=== PATIENT | male | born 1965 | race Caucasian/White ===

== ENCOUNTER 2021-02-25 22:59 | Emergency (ER) | payer MEDICAID ==
[2021-02-25] MEDS ORDERED: Amoxicillin/Clavulanate K 875-125 MG Tab PO ONE (23:21)
--- NOTE | 2021-02-25 23:21 | EDM.PDOC ---
ED HPI GENERAL MEDICAL PROBLEM - General Chief Complaint: Bite:Animal, Insect Stated Complaint: DOG BITE Time Seen by Provider: 02/25/21 23:15 Source of Information: Reports: Patient History Limitations: Reports: No Limitations - History of Present Illness INITIAL COMMENTS - FREE TEXT/NARRATIVE: Osbaldo Morgan presents ambulatory through triage with complaints of dog bites. Patient is right-handed and notes that he was helping break up a fight between 2 dogs. Patient notes he was bit in his right index finger and right eyebrow. He denies any other acute complaints. He is tetanus was last updated on March 2015. He denies diabetes. He denies any runny nose, sore throat, cough change in his or smell. The patient reports previous fractures to his right index finger from boxing many years ago. He denies any new loss of function but does note pain over the distal right index finger where he was bit. Patient has any numbness, tingling. He denies any complaints. He does report that the dog has had his vaccines. Right Finger-Index Pain Score (Numeric/FACES): 8 - Related Data Allergies Allergy/AdvReac Type Severity Reaction Status Date / Time morphine Allergy Itching Verified 02/25/21 23:25 Home Meds: Home Meds NK [No Known Home Meds] 02/25/21 [History] ED ROS GENERAL - Review of Systems Review Of Systems: See Below Constitutional: Denies: Fever, Chills HEENT: Reports: No Symptoms Respiratory: Reports: No Symptoms Cardiovascular: Reports: No Symptoms Musculoskeletal: Reports: Other (Previous fractures to right index finger. New pain of right distal index finger phalanx where he was bit.) Skin: Reports: Other (Laceration right medial eyebrow and right index finger.) Neurological: Reports: No Symptoms. Denies: Paresthesia Hematologic/Lymphatic: Reports: No Symptoms. Denies: Easy Bleeding, Easy Bruising Immunologic: Reports: No Symptoms ED EXAM, ANIMAL BITE - Physical Exam Exam: See Below Exam Limited By: No Limitations General Appearance: Alert, No Apparent Distress Eye Exam: Bilateral Eye: PERRL Ears: Normal External Exam Nose: Normal Inspection Throat/Mouth: Normal Inspection Head: No: Facial Swelling, Facial Tenderness, Sinus Tenderness Neck: Normal Inspection Respiratory/Chest: No Respiratory Distress, Lungs Clear Cardiovascular: Normal Peripheral Pulses, No JVD, Other (Cap refill is normal.) GI/Abdominal: Non-Tender Back Exam: Normal Inspection Extremities: Normal Capillary Refill, Other (Patient has a laceration to the right index finger distal phalanx does not involve the nailbed or nail plate. Over the radial aspect. Cap refill distally is intact. There is appearance of chronic deformity of PIP joint. Patient does have flexion at the PIP and DIP without pain or discomfort. No) Neurological: Alert, Oriented, Normal Cognition, Normal Gait, No Motor/Sensory Deficits, Other Skin Exam: Normal Color, Other (Single isolated puncture rajeev to right medial eyebrow. Approximately 0.5 center laceration to right index finger distal phalanx. Remaining skin is normal.) ED ANIMAL BITE PROCEDURES - Laceration/Wound Repair Right Digit - 2nd (Index) Lac/Wound Length In cm: 0.5 Appearance: Superficial Distal NVT: Neuro & Vascular Intact Anesthetic Type: Digital Local Anesthesia - Lidocaine (Xylocaine): 1% Plain Local Anesthetic Volume: 2cc Skin Prep: Chlorhexidine (Hibiciens) Saline Irrigation (cc's): 1,000 (tap water) Exploration/Debridement/Repair: Wound Explored Course - Vital Signs Text/Narrative:: After digital block patient was taken to the high flow sink and irrigated the right ring finger for greater than 5 minutes. The medial right eyebrow is also been irrigated and is very superficial no need for repair Right index finger x-ray. Soft tissue defect but no fracture. My read prelim. Patient medical stable. His wounds been irrigated. There is no indication for repair. His tetanus is up-to-date and we will place him on Augmentin as outpatient. First dose given in the ER. Augmentin 875 mg po bid x 7 days Last Recorded V/S: Last Vital Signs Temp 36.4 C 02/25/21 23:33 Pulse 79 02/25/21 23:33 Resp 16 02/25/21 23:33 BP 126/81 02/25/21 23:33 Pulse Ox 99 02/25/21 23:33 - Orders/Labs/Meds Orders: Active Orders 24 hr Category Date Time Status Fingers Second Digit Rt F6 [CR] Stat Exams 02/25/21 23:22 Taken Meds: Medications Discontinued Medications Generic Name Dose Route Start Last Admin Trade Name Freq PRN Reason Stop Dose Admin Amoxicillin/Clavulanate Potassium 1 tab 02/25/21 23:21 02/25/21 23:28 Amoxicillin/Clavulanate K 875-125 Mg Tab PO 02/25/21 23:22 1 tab ONETIME ONE Administration Bacitracin 1 dose 02/26/21 00:29 02/26/21 00:29 Bacitracin Oint 1 Gm U/D Packet TOP 02/26/21 00:30 1 dose ONETIME ONE Administration Bacitracin Confirm 02/26/21 00:26 02/26/21 00:30 Bacitracin Oint 1 Gm U/D Packet Administered 02/26/21 00:27 Not Given Dose 1 dose .ROUTE .STK-MED ONE Diphtheria/Tetanus/Acell Pertussis 0.5 ml 02/25/21 23:31 02/26/21 00:00 Diphtheria,Pertussis(Acell),Tetanus Vaccine 0.5 Ml Syringe IM 02/25/21 23:32 0.5 ml .ONCE ONE Administration Lidocaine HCl 5 ml 02/25/21 23:21 02/25/21 23:28 Lidocaine 1% 5 Ml Sdv INJECT 02/25/21 23:22 5 ml ONETIME ONE Administration Departure - Departure Time of Disposition: 00:10 Disposition: Home, Self-Care 01 Condition: Good Clinical Impression: Dog bite, Eyebrow laceration, Laceration of index finger - Discharge Information Instructions: Animal Bite, Adult, [id number], Laceration Care, Adult, [id number] Referrals: PCP,None [Primary Care Provider] - Forms: ED Department Discharge Additional Instructions: Take the Augmentin 1 tablet by mouth for the next 7 days until gone. Keep your finger clean dry and covered with bacitracin and a Band-Aid. Return if fever, temperature to 100.4, severe pain or red streaks of hand. Recheck prior care physician or here in 5 to 7 days. Your x-rays will be finally read tomorrow by radiologist. Your preliminary x-rays are negative for fracture or retained tooth. Sepsis Event Note (ED) - Focused Exam Vital Signs: Vital Signs Temp Pulse Resp BP Pulse Ox 02/25/21 23:33 36.4 C 79 16 126/81 99 02/25/21 23:13 36.4 C 79 16 126/81 99 - My Orders Last 24 Hours: My Active Orders 02/25/21 23:22 Fingers Second Digit Rt F6 [CR] Stat - Assessment/Plan Last 24 Hours: My Active Orders 02/25/21 23:22 Fingers Second Digit Rt F6 [CR] Stat
[2021-02-25] MEDS ORDERED: Diphtheria,Pertussis(Acell),Tetanus Vaccine 0.5 ML Syringe IM ONE (23:31)
[2021-02-26] MEDS ORDERED: Bacitracin Oint 1 GM U/D Packet ONE (00:26)
[2021-02-26] MEDS ORDERED: Bacitracin Oint 1 GM U/D Packet TOP ONE (00:29)
--- NOTE | 2021-02-26 09:13 | CR ---
Fingers Second Digit Rt F6 CLINICAL HISTORY: Dog bite FINDINGS: There is a laceration of the distal aspect of the right index finger. No underlying fractures identified. There are some minimal stable density which may be on the skin or in the soft tissue IMPRESSION: Laceration No fracture
== END 2021-02-26 00:42 | disposition home or self-care (01) ==
LOC: JP.ED 22:59
DX: S01.151A Open bite of right eyelid and periocular area, initial encounter (principal); S61.250A Open bite of right index finger without damage to nail, initial encounter; Z23 Encounter for immunization; Z88.6 Allergy status to analgesic agent; W54.0XXA Bitten by dog, initial encounter
CPT/HCPCS: 64450; 73140-26-F6; 73140-F6; 90471; 90715; 99283-25; A9270-GY

== ENCOUNTER 2021-03-29 17:23 | Inpatient (IN) | payer MEDICAID ==
--- NOTE | 2021-03-29 19:32 | CRLCT ---
For Patients: As a result of the Century Cures Act, medical imaging exams and procedure reports are released immediately into your electronic medical record. You may view this report before your referring provider. If you have questions, please contact your health care provider. INDICATION: Sudden pain all over the abdomen. Pain came on last night. TECHNIQUE: CT of abdomen and pelvis performed without oral or IV contrast. FINDINGS: Mild retrolisthesis of L5 on S1. Marked sclerosis in the L5 and S1 vertebral bodies about the narrowed L5 interspaces consistent with degenerative disc disease. Partial visualization of changes of previous granulomatous disease in the chest and spleen including multiple calcified lymph nodes and calcified granulomas in the right infrahilar region and calcified granulomas in the spleen. Mild to moderate aortic vascular calcifications. Mild wall prominence distal esophagus likely chronic. Hazy and ill-defined opacity in the lower lobes could be related to the atelectasis and/or inflammation. Few small uncalcified nodules in the mid and lower lungs are statistically speaking likely benign. Cholecystectomy with upper limits normal common bile duct consistent postcholecystectomy state. No renal or ureteral stones. Few scattered air-fluid levels within small bowel loops in the abdomen and pelvis with none the small bowel loops being dilated. Findings likely related to a small bowel ileus. Appendix is normal. Fluid in the right lower anterior pelvis with mild scarring in the right anterior pelvic wall and groin consistent with prior hernia repair. Mild wall prominence urinary bladder. Small amount of nodular density or fluid in the left lower abdomen and anterior lateral to the descending colon is very nonspecific. Remainder negative. IMPRESSION: 1. Few air-fluid levels within nondilated small bowel loops in the abdomen and pelvis without a discrete transition point likely related to a early small bowel ileus. Findings are not prominent enough to suggest an early partial small bowel obstruction. 2. Postsurgical changes right lower anterior pelvis and groin region consistent with prior hernia repair with a small amount of loculated fluid in this region. 3. Small amount of density along the anterior lateral aspect of the distal descending colon very nonspecific. 4. Few uncalcified nodules in the mid and lower lungs are statistically speaking likely benign. 5. Cholecystectomy with mild prominence of the common bile duct consistent postcholecystectomy state. Other findings as above. Please note that all CT scans at this facility use dose modulation, iterative reconstruction, and/or weight-based dosing when appropriate to reduce radiation dose to as low as reasonably achievable. Dictated by Samuel Amezcua MD @ 03/29/2021 7:30:[address] Samuel Amezcua @ Mar 29 2021 7:30PM
--- NOTE | 2021-03-29 19:51 | EDM.PDOC ---
ED HPI GENERAL MEDICAL PROBLEM - General Chief Complaint: Abdominal Pain Stated Complaint: STOMACH PAIN/NUMBNESS Time Seen by Provider: 03/29/21 17:50 Source of Information: Reports: Patient, RN, RN Notes Reviewed History Limitations: Reports: No Limitations - History of Present Illness INITIAL COMMENTS - FREE TEXT/NARRATIVE: Patient with sudden onset right lower quadrant pain last evening. Patient is tender to touch. Is not take anything for pain. He has eaten and drank very little since the pain started. Onset: Sudden Onset Date: 03/28/21 Onset Time: 22:00 Duration: Getting Worse Location: Reports: Abdomen (Predominantly right lower quadrant moving toward spinal region. ) Quality: Reports: Sharp, Other Severity: Moderate Improves with: Reports: None Worsens with: Reports: None Context: Reports: Sick Contact Associated Symptoms: Reports: Other (Difficulty with bowel movements does have some gas) Treatments GATEMAN: Reports: Other (see below) - Related Data Allergies Allergy/AdvReac Type Severity Reaction Status Date / Time morphine Allergy Itching Verified 03/29/21 17:39 Home Meds: Home Meds NK [No Known Home Meds] 02/25/21 [History] Past Medical History Cardiovascular History: Reports: [place] Musculoskeletal History: Reports: Back Pain, Chronic - Past Surgical History GI Surgical History: Reports: Cholecystectomy, Other (See Below) Other GI Surgeries/Procedures: esophageal hernia Neurological Surgical History: Reports: Lumbar Spine Social & Family History - Tobacco Use Tobacco Use Status *Q: Current Every Day Tobacco User Years of Tobacco use: 30 Packs/Tins Daily: 1 - Caffeine Use Caffeine Use: Reports: None ED ROS GENERAL - Review of Systems Review Of Systems: See Below (None) Constitutional: Reports: Fever, Chills, Weakness, Decreased Appetite (Pseudogout 1) HEENT: Reports: No Symptoms Respiratory: Reports: No Symptoms Cardiovascular: Reports: No Symptoms Endocrine: Reports: Fatigue GI/Abdominal: Reports: Abdominal Pain, Constipation, Flatus (Small amounts), Nausea. Denies: Black Stool, Bloody Stool, Diarrhea, Mucous in Stool, Vomiting : Reports: No Symptoms Musculoskeletal: Reports: No Symptoms Skin: Reports: No Symptoms ED EXAM, GI/ABD - Physical Exam Exam: See Below Exam Limited By: No Limitations General Appearance: Alert, Moderate Distress Throat/Mouth: Normal Inspection, Normal Lips Head: Atraumatic, Normocephalic Neck: Normal Inspection, Supple, Non-Tender Respiratory/Chest: No Respiratory Distress, Lungs Clear, Normal Breath Sounds Cardiovascular: Normal Peripheral Pulses, Regular Rate, Rhythm, No Edema GI/Abdominal Exam: Guarding, Rebound, Tender, Abnormal Bowel Sounds. No: Distended, Mass, Hepatomegaly, Splenomegaly Back Exam: Normal Inspection, Full Range of Motion Extremities: Normal Inspection, Normal Range of Motion Neurological: Alert, Oriented, CN II-XII Intact, Normal Cognition Psychiatric: Normal Affect, Normal Mood Skin Exam: Warm, Dry, Intact, Normal Color, No Rash Lymphatic: No Adenopathy Course - Vital Signs Last Recorded V/S: Last Vital Signs Temp 36.6 C 03/29/21 17:46 Pulse 86 03/29/21 17:46 Resp 22 H 03/29/21 17:46 BP 118/73 03/29/21 17:46 Pulse Ox 96 03/29/21 17:46 - Orders/Labs/Meds Orders: Medication Orders Sodium Chloride (Sodium Chloride 0.9% 10 Ml Syringe) 10 ml FLUSH ASDIRECTED PRN PRN Reason: Keep Vein Open Last Admin: 03/29/21 20:41 Dose: 10 ml Documented by: KP Meds: Medications Generic Name Dose Route Start Last Admin Trade Name Freq PRN Reason Stop Dose Admin Sodium Chloride 10 ml 03/29/21 20:24 03/29/21 20:41 Sodium Chloride 0.9% 10 Ml Syringe FLUSH 10 ml ASDIRECTED PRN Administration Keep Vein Open Discontinued Medications Generic Name Dose Route Start Last Admin Trade Name Freq PRN Reason Stop Dose Admin Ketorolac Tromethamine 30 mg 03/29/21 20:26 03/29/21 20:40 Ketorolac 30 Mg/Ml Sdv IVPUSH 03/29/21 20:27 30 mg ONETIME ONE Administration - Radiology Interpretation Free Text/Narrative:: CT scan shows ileus versus small bowel obstruction will consult surgery. CT Results Date: 03/29/21 CT Results Time: 19:30 - Re-Assessments/Exams Free Text/Narrative Re-Assessment/Exam: IV be to placed with IV Toradol provided for pain patient does have a morphine allergy so opted for Toradol versus Dilaudid. 03/29/21 20:[address] Bell who is the on-call provider for the hospital. Patient will be admitted as an inpatient for ileus versus small bowel obstruction with consult to surgery. 03/29/21 20:53 Departure - Departure Time of Disposition: 21:15 Disposition: Admitted As Inpatient 68 Clinical Impression: Ileus, Abdominal pain - Discharge Information *PRESCRIPTION DRUG MONITORING PROGRAM REVIEWED*: Not Applicable *COPY OF PRESCRIPTION DRUG MONITORING REPORT IN PATIENT RASHEED: Not Applicable Sepsis Event Note (ED) - Evaluation Sepsis Screening Result: No Definite Risk - Assessment/Plan Assessment:: Ileus versus bowel obstruction Plan: Admit to inpatient with surgical consult
[2021-03-29] MEDS ORDERED: Sodium Chloride 0.9% 10 ML Syringe FLUSH PRN (20:24)
[2021-03-29] MEDS ORDERED: Ketorolac 30 MG/ML SDV IVPUSH ONE (20:26)
[2021-03-29] MEDS ORDERED: Ondansetron 4 MG/2 ML SDV IVPUSH PRN (21:30)
[2021-03-29] MEDS ORDERED: HYDROmorphone 0.5 MG/0.5 ML Syringe IVPUSH PRN (21:30)
[2021-03-29] MEDS ORDERED: Pantoprazole 40 MG Vial IVPUSH SCH (21:30)
[2021-03-29] MEDS ORDERED: Ketorolac 30 MG/ML SDV IVPUSH PRN (21:30)
[2021-03-29] MEDS: Sodium Chloride 0.9% 1,000 ML IV SCH (22:45)
--- NOTE | 2021-03-29 23:10 | HP ---
IDENTIFYING DATA: Osbaldo Morgan is a 56-year-old male from [place], [place]. CHIEF COMPLAINT: Abdominal pain. HISTORY OF PRESENT ILLNESS: The patient reports he is generally in a good state of health. However, yesterday evening following supper, he had onset of vague generalized anterior abdominal pain of iuaqilum-xi-tuutac intensity. The pain has persisted over the 24 hours. He has had periods of transient nausea without emesis as well as anorexia, taking in only small amounts of fluids. He is stooling and passing flatus with increasing pain. He presented to the emergency room. PAST MEDICAL HISTORY: Significant for history of chronic GE reflux with laparoscopic Benita fundoplication completed approximately 10 years ago. He reports occasional dyspeptic symptoms with p.r.n. use of H2 meek therapy. Additional surgeries include elective cholecystectomy and inguinal herniorrhaphy. He denies recent dyspeptic symptoms. He is a tobacco user of one pack per day. Caffeine use is heavy, estimating 2 to 3 coffees and a 12-pack of Mountain Dew daily. Rare use of alcohol, reporting a remote history of heavy alcohol use. Denies other drug use at the current time. He has had no emesis, hematemesis, melena, or hematochezia. He has had occasional aching across the flanks as well. PAST SURGICAL HISTORY: Previous surgeries as identified above. Additional surgeries include lumbar spine fusion for chronic low back pain. HABITS: Tobacco and caffeinated beverage use as noted above. IMMUNIZATIONS: Vaccine status is unknown. ALLERGIES: REPORTED TO MORPHINE WITH DEVELOPMENT OF ITCHING. MEDICATIONS: Currently on no medications routinely. Does use iuqy-ubq-uauziim H2 blockers on a p.r.n. basis and infrequent use of nonsteroidals. SOCIAL HISTORY: Presents to the hospital with his significant other. 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 FAMILY HISTORY: Denies familial history of other individuals with acute respiratory or GI infections. REVIEW OF SYSTEMS: NEUROLOGIC: Reports chronic mild hearing loss. He does wear corrective lenses. No history of cataracts, glaucoma, or retinopathy. Denies paresthesias or focal weakness. Reports a possible past history of stroke. CARDIAC: No history of hypertension, diabetes, congenital heart disease, rheumatic fever, or lipid disorder. The patient states 10 to 12 years ago he was hospitalized briefly for a "heart attack," but reports he was discharged from the hospital without interventional therapy or medications. Validity is unknown. Records are unavailable. RESPIRATORY: Reports a history of mild asthmatic symptoms as a child. Previous use of the inhaled steroids, not currently requiring its use. No recent acute respiratory symptoms. Denying wheeze, cough, sputum production, or shortness of breath. No history of COVID disease. GASTROINTESTINAL: As above. GENITOURINARY: Remote history of inguinal herniorrhaphy. Voiding with good regularity. No dysuria or incontinence. MUSCULOSKELETAL: Chronic mild residual low back pain. Past history of lumbar spine fusion at a single-level. PHYSICAL EXAMINATION: GENERAL: Appearance is that of an adult male, now resting comfortably in his hospital bed. Notes diminishment of pain with analgesic therapy. VITAL SIGNS: Temperature 36.6 degrees centigrade, pulse 86, respiratory rate 22, blood pressure 118/73, and O2 sats 96% on room air. HEENT: Hearing is diminished. Sclerae are anicteric. No facial asymmetries. Edentulous. NECK: Brisk carotid pulses. No bruits, JVD, adenopathy, or thyromegaly. LUNGS: Clear and non-tachypneic, symmetrical aeration. Mild expiratory rhonchi, clear with cough. HEART: Regular without murmurs or gallops noted. ABDOMEN: Active sounds. Mildly distended. No organomegaly. No guarding, rebound, or referred pain. Diffuse scan-rz-frzkyupr tenderness currently noted. No CVA tenderness on percussion. Good femoral pulses. No abdominal bruits are heard. EXTREMITIES: Warm and pink. Intact pulses. No edema. Non-diaphoretic. No rashes. LABORATORY DATA: On admission WBC 8.8, hemoglobin 14.6, and platelet count 259,000. Sodium 140, potassium 3.7, BUN 10, and creatinine 1.1. GFR greater than 60. Calcium 8.0, bilirubin 0.2, AST 19, ALT 28, alkaline phosphatase 99, and amylase 45 with lipase of 70. Urinalysis: Specific gravity of 1.025; negative ketones, blood, nitrites, or leukocyte esterase; negative for wbc's or significant bacteria. CT of the abdomen obtained. Some mildly dilated loops of small bowel without evidence of obstructive pattern. No free air noted. No other intraabdominal pathology, evidence of previous cholecystectomy and inguinal herniorrhaphy. ADMITTING DIAGNOSES: 1. Anterior abdominal pain with radiographic imaging suggesting ileus. 2. Past history of gastroesophageal reflux disease, status post Benita fundoplication in the remote past. 3. Status post cholecystectomy. 4. Prior history of inguinal herniorrhaphy. 5. Mcedzaue-ew-nvgey caffeinated beverage intake. 6. Tobacco use. 7. Questionable history of ischemic heart disease. Unable to confirm the patient's history. PLAN: The patient is admitted to the Med/Surg floor for continued supportive care. We will maintain n.p.o. status with limited amounts of ice chips for hydration of the mouth, IV fluids, antiemetics, PPI therapy, and analgesic therapy will be administered intravenously. A.m. radiographic studies will include flatplate of the abdomen. If symptoms show resolution, consider introduction of clear liquids and advancement of diet as tolerated. If he continues to experience ongoing anterior abdominal pain in light of previous history of Benita fundoplication and GE reflux may require an endoscopic evaluation. Follow up labs including BMP are requested. We will also maintain code status at full code. Allow ambulatory activity as tolerated. Connor Santana MD /[id number]
--- NOTE | 2021-03-30 05:29 | PN ---
DATE OF SERVICE: 03/30/2021 SUBJECTIVE: A 56-year-old male is seen today for followup of abdominal pain and notes ongoing moderate midabdominal pain without emesis or hematemesis. He is passing flatus, notes mild distention. Ileus was suggested by imaging at the time of admission. He has a prior history of Benita fundoplication completed in the remote past. He is a smoker and uses large amounts of caffeinated beverages in the form of coffee and soft drinks on a daily basis. Current tobacco use is estimated at 1 pack per day. He does not routinely use maintenance medications, though does use H2 blockers or PPI agents on a p.r.n. basis. OBJECTIVE: GENERAL: Sleeping, arousable, notes mild discomfort in the anterior abdomen, has not required analgesic therapy following admission. VITAL SIGNS: Temperature 36.4 degrees centigrade, pulse 63, blood pressure 113/57, and respiratory rate 16 with O2 sats of 95% on room air. NECK: Brisk carotid pulses. No stridor. LUNGS: Symmetrical, clear, resonant, and non-tachypneic. HEART: Regular without murmurs or gallops. ABDOMEN: Mildly distended. Active sounds are noted. Generalized mild tenderness to palpation in the lle-yp-mnmwf abdomen. No localized pain, guarding, rebound, or referred pain. No CVA tenderness. Good femoral pulses without abdominal bruits. EXTREMITIES: Lower extremities are warm and pink. Good turgor. No edema. IMPRESSION AND PLAN: Presentation of generalized anterior abdominal pain and suggestion of ileus by CT imaging. Question upper gastrointestinal pathology with potential for peptic ulcer disease or gastritis. We will continue with n.p.o. status. IV fluids are provided to maintain hydration. The patient is on proton pump inhibitor therapies as well as provisions for antiemetics and analgesic therapy as required. Consult Surgical Services to evaluate and consider upper endoscopy. If upper gastrointestinal studies do not show concerning abnormalities, consider introduction of clear liquid diet and advancement as tolerated. Connor Santana MD /[id number]
[2021-03-30] MEDS: Sodium Chloride 0.9% 1,000 ML IV SCH (05:41)
--- NOTE | 2021-03-30 08:36 | PCM.CONS ---
H&P History of Present Illness - General Date of Service: 03/30/21 Admit Problem/Dx: Admission Diagnosis/Problem Admission Diagnosis/Problem Ileus Source of Information: Patient History Limitations: Reports: Other (Osbaldo did not want to talk this morning and history is very difficult to obstain. Most of history taken by ED and Admission notes. ) - History of Present Illness Onset of Symptoms: Reports: Sudden Symptom Onset Date: 03/28/21 Duration of Symptoms: Reports: Day(s): (1) Location: Reports: Abdomen Quality: Reports: Dull Severity: Moderate Improves with: Reports: Other (he had a shot of Toradol and states he felt better after that. Denies pain. ) Associated Symptoms: Reports: Other (nausea) Abdomen Pain Score (Numeric/FACES): 0 - Related Data Allergies/Adverse Reactions: Allergies Allergy/AdvReac Type Severity Reaction Status Date / Time morphine Allergy Itching Verified 03/29/21 17:39 Home Medications: Home Meds NK [No Known Home Meds] 02/25/21 [History] Past Medical History Cardiovascular History: Reports: NC Musculoskeletal History: Reports: Back Pain, Chronic - Past Surgical History GI Surgical History: Reports: Cholecystectomy, Other (See Below) Other GI Surgeries/Procedures: esophageal hernia Neurological Surgical History: Reports: Lumbar Spine Social & Family History - Tobacco Use Tobacco Use Status *Q: Current Every Day Tobacco User Years of Tobacco use: 40 Packs/Tins Daily: 1 - Caffeine Use Caffeine Use: Reports: Coffee, Soda - Recreational Drug Use Recreational Drug Type: Reports: Marijuana/Hashish Recreational Drug Use Frequency: Rarely H&P Review of Systems - Review of Systems: Review Of Systems: Comprehensive ROS is negative, except as noted in HPI. Exam - Exam Exam: See Below - Vital Signs Vital Signs: Last Vital Signs Temp 97.8 F 03/30/21 07:00 Pulse 69 03/30/21 07:00 Resp 16 03/30/21 07:00 BP 110/66 03/30/21 07:00 Pulse Ox 97 03/30/21 07:00 Weight: 140 lb 6.951 oz - Exam Quality Assessment: DVT Prophylaxis General: Other (not very willing to give history . ) HEENT: Other (would not open his eyes. ) Neck: Supple Lungs: Clear to Auscultation, Normal Respiratory Effort Cardiovascular: Regular Rate, Regular Rhythm GI/Abdominal Exam: Soft, No Distention, Other (no tenderness ) (Male) Exam: Deferred Rectal (Males) Exam: Deferred Back Exam: Normal Inspection Extremities: Normal Inspection Skin: Warm, Dry, Intact Neurological: Cranial Nerves Intact Neuro Extensive - Mental Status: Other (sleepy and not very cooperative ) Psychiatric: Labile Mood - Patient Data Lab Results Last 24 hrs: Laboratory Results - last 24 hr 03/29/21 03/29/21 03/29/21 Range/Units 18:05 18:18 18:18 WBC 8.8 (4.5-11.0) K/uL RBC 4.55 (4.30-5.90) M/uL Hgb 14.6 (12.0-15.0) g/dL Hct 42.8 (40.0-54.0) % MCV 94 (80-98) fL MCH 32 H (27-31) pg MCHC 34 (32-36) % Plt Count 259 (150-400) K/uL Neut % (Auto) 70.3 H (36-66) % Lymph % (Auto) 13.4 L (24-44) % Sullivan % (Auto) 13.4 H (2-6) % Eos % (Auto) 2.7 (2-4) % Baso % (Auto) 0.2 (0-1) % Sodium 140 (140-148) mmol/L Potassium 3.7 (3.6-5.2) mmol/L Chloride 103 (100-108) mmol/L Carbon Dioxide 28 (21-32) mmol/L Anion Gap 8.9 (5.0-14.0) mmol/L BUN 10 (7-18) mg/dL Creatinine 1.1 (0.8-1.3) mg/dL Est Cr Clr Drug Dosing 71.42 mL/min Estimated GFR (MDRD) > 60 (>60) Glucose 93 (74-106) mg/dL Lactic Acid (0.4-2.0) mmol/L Calcium 8.0 L (8.5-10.1) mg/dL Total Bilirubin 0.2 (0.2-1.0) mg/dL AST 19 (15-37) U/L ALT 28 (12-78) U/L Alkaline Phosphatase 99 (46-116) U/L Total Protein 6.2 L (6.4-8.2) g/dL Albumin 2.8 L (3.4-5.0) g/dL Globulin 3.4 (2.3-3.5) g/dL Albumin/Globulin Ratio 0.8 L (1.2-2.2) Amylase 45 (25-115) U/L Lipase 70 L (73-393) U/L Urine Color Yellow (YELLOW) Urine Appearance Slightly cloudy A (CLEAR) Urine pH 6.5 (5.0-8.0) Ur Specific [place] 1.025 (1.008-1.030) Urine Protein Negative (NEGATIVE) mg/dL Urine Glucose (UA) Negative (NEGATIVE) mg/dL Urine Ketones Negative (NEGATIVE) mg/dL Urine Occult Blood Negative (NEGATIVE) Urine Nitrite Negative (NEGATIVE) Urine Bilirubin Negative (NEGATIVE) Urine Urobilinogen 1.0 (0.2-1.0) EU/dL Ur Leukocyte Esterase Negative (NEGATIVE) Urine RBC 0-5 (0-5) Urine WBC 0-5 (0-5) Ur Epithelial Cells Not seen Amorphous Sediment Not seen Urine Bacteria Rare Urine Mucus Moderate 03/29/21 03/30/21 Range/Units 18:18 05:00 WBC (4.5-11.0) K/uL RBC (4.30-5.90) M/uL Hgb (12.0-15.0) g/dL Hct (40.0-54.0) % MCV (80-98) fL MCH (27-31) pg MCHC (32-36) % Plt Count (150-400) K/uL Neut % (Auto) (36-66) % Lymph % (Auto) (24-44) % Sullivan % (Auto) (2-6) % Eos % (Auto) (2-4) % Baso % (Auto) (0-1) % Sodium 140 (140-148) mmol/L Potassium 3.8 (3.6-5.2) mmol/L Chloride 107 (100-108) mmol/L Carbon Dioxide 27 (21-32) mmol/L Anion Gap 5.6 (5.0-14.0) mmol/L BUN 11 (7-18) mg/dL Creatinine 1.0 (0.8-1.3) mg/dL Est Cr Clr Drug Dosing 73.46 mL/min Estimated GFR (MDRD) > 60 (>60) Glucose 101 (74-106) mg/dL Lactic Acid 1.1 (0.4-2.0) mmol/L Calcium 8.1 L (8.5-10.1) mg/dL Total Bilirubin (0.2-1.0) mg/dL AST (15-37) U/L ALT (12-78) U/L Alkaline Phosphatase (46-116) U/L Total Protein (6.4-8.2) g/dL Albumin (3.4-5.0) g/dL Globulin (2.3-3.5) g/dL Albumin/Globulin Ratio (1.2-2.2) Amylase (25-115) U/L Lipase (73-393) U/L Urine Color (YELLOW) Urine Appearance (CLEAR) Urine pH (5.0-8.0) Ur Specific [place] (1.008-1.030) Urine Protein (NEGATIVE) mg/dL Urine Glucose (UA) (NEGATIVE) mg/dL Urine Ketones (NEGATIVE) mg/dL Urine Occult Blood (NEGATIVE) Urine Nitrite (NEGATIVE) Urine Bilirubin (NEGATIVE) Urine Urobilinogen (0.2-1.0) EU/dL Ur Leukocyte Esterase (NEGATIVE) Urine RBC (0-5) Urine WBC (0-5) Ur Epithelial Cells Amorphous Sediment Urine Bacteria Urine Mucus Result Diagrams: 03/29/21 18:18 03/30/21 05:00 Sepsis Event Note - Evaluation Sepsis Screening Result: No Definite Risk - Focused Exam Vital Signs: Vital Signs Temp Pulse Resp BP Pulse Ox 03/30/21 07:00 97.8 F 69 16 110/66 97 03/30/21 03:00 97.6 F 63 16 113/57 L 95 03/29/21 21:24 97.8 F 77 16 121/70 100 Consult PN Assessment/Plan Procedures: Procedures EMERGENCY DEPT VISIT (02/25/21) IMMUNIZATION ADMIN (02/25/21) NJX AA&/STRD OTHER PN/BRANCH (02/25/21) TDAP VACCINE 7 YRS/> IM (02/25/21) X-RAY EXAM OF FINGER(S) (02/25/21) Problem List Initiated/Reviewed/Updated: Yes My Orders Last 24 Hours: My Active Orders 03/30/21 Breakfast Full Liquid Diet [DIET] Dextrose 5%-Lactated Ringers 1,000 ml IV ASDIRECTED 03/30/21 09:00 Docusate Sodium [Colace] 100 mg PO BID bisacodyL [Dulcolax] 10 mg PO BID 03/31/21 04:00 Abdomen 2V AP Flat Upright [CR] Timed Plan: Plan: Full liquid diet. D5 LR at 100 mls per hour Abdominal Flat and Upright X Ray in Am. Will Evaluate prn or in AM Luisa Vo 03/30/2021
[2021-03-30] MEDS: Docusate Sodium 100 MG Cap PO SCH ×2 (08:44→20:29)
[2021-03-30] MEDS: Bisacodyl 5 MG Tab PO SCH ×2 (08:44→20:29)
[2021-03-30] MEDS: Dextrose 5%-Lactated Ringers 1,000 ML IV SCH ×2 (08:44→20:33)
[2021-03-30] MEDS ORDERED: Nicotine 21 MG/24 Hr Patch TRDERM SCH (09:00)
--- NOTE | 2021-03-30 14:23 | CR ---
Abdomen 1V Flat, Abdomen 1V Upright CLINICAL HISTORY: Abdominal pain FINDINGS: No free air is identified. There are scattered air-filled loops of small bowel in a nonacute pattern. There is moderate gas and feces throughout the colon. There are surgical clips in the right upper quadrant. IMPRESSION: Nonacute intestinal gas pattern Fecal retention
[2021-03-30] MEDS ORDERED: Pantoprazole 40 MG Tab.CR PO SCH (21:00)
--- NOTE | 2021-03-31 09:41 | CR ---
Abdomen 2V AP Flat Upright CLINICAL HISTORY: Postoperative ileus FINDINGS: There are scattered air-filled loops of small bowel in a nonacute pattern. There are surgical clips in the right upper quadrant. Gas and feces is seen throughout the colon. No free air is identified IMPRESSION: Nonacute intestinal gas pattern
--- NOTE | 2021-03-31 11:35 | DISCH ---
ADMISSION DIAGNOSIS: Abdominal pain associated with nausea. DISCHARGE DIAGNOSES: 1. Abdominal pain, resolved. 2. Ileus. HISTORY: Osbaldo Morgan is a 56-year-old male, who is in generally good health, and presented to the emergency room on 03/29/2021 with a history of generalized abdominal pain, moderate to severe in intensity, lasting over 24 hours. He had periods of nausea. No emesis. He was not hungry, having bowel movements, and passing flatus. He was evaluated in the emergency room and was admitted to the hospital and had a surgical consult. His pain completely resolved after getting Toradol IM. He was seen by Surgery on early a.m. on 03/30/2021, started on a full liquid diet, then advanced to regular diet later in the day. He was given bowel stimulation and he did have a bowel movement. He reports no pain and he is requesting to go home. REVIEW OF SYSTEMS: HEENT: Negative. NECK: Negative. CHEST: Denies chest pain, shortness of breath, fast irregular heart beat. LUNGS: No cough. ABDOMEN: No abdominal pain, nausea, vomiting, dysphagia, diarrhea, constipation, red or black stools. : Negative. EXTREMITIES: No joint pain or swelling. NEUROLOGIC: No headaches or dizziness. EXTREMITIES: No joint pain or swelling. SKIN: Denies rash. PSYCHIATRIC: No depression or anxiety. Remainder of review of systems negative for any pertinent positives and negatives. OBJECTIVE: GENERAL: Osbaldo Morgan is a 56-year-old male. VITAL SIGNS: Height is 5 feet 5 inches, weight is 141 pounds. TPR; 97.3, 66, 14. Blood pressure 130/89. HEENT: Negative. NECK: Supple. HEART: Regular rate and rhythm. LUNGS: Clear. ABDOMEN: Soft, flat, nontender. EXTREMITIES: Without peripheral edema. NEUROLOGIC: Intact. PSYCHIATRIC: Mood and affect flat. DISPOSITION: Discharged to home. CONDITION: Stable and improving. DISCHARGE MEDICATIONS: He has no home medications. FOLLOWUP: He is to follow up with Surgery Department if any further pain or abdominal problems. Recommend he find a primary care provider. DIET: Usual diet as tolerated, drink 8 to 10 glasses of water a day. ACTIVITY: As tolerated. May drive today. Shower/bathing, may shower. Notify provider if any fever, increased pain, nausea, or vomiting. SPECIAL INSTRUCTIONS: 1. Recommend to establish care with a primary care provider. 2. If any further abdominal pain to follow up with Surgery Department at [facility], call [phone]. /[id number]
== END 2021-03-31 08:15 | disposition home or self-care (01) | DRG 390 ==
LOC: JP.ED 17:23 → JP.MS 17:26
PROVIDERS: ADMIT Family Medicine; ATTEND Family Medicine
DX: K56.7 Ileus, unspecified (principal); K21.9 Gastro-esophageal reflux disease without esophagitis; F17.210 Nicotine dependence, cigarettes, uncomplicated; H91.90 Unspecified hearing loss, unspecified ear; G89.29 Other chronic pain; M54.9 Dorsalgia, unspecified; Z88.5 Allergy status to narcotic agent; Z90.49 Acquired absence of other specified parts of digestive tract; Z98.890 Other specified postprocedural states; I25.2 Old myocardial infarction
CPT/HCPCS: 36415; 74018; 74018-26; 74019; 74019-26; 74176; 80048; 80053; 81001; 82150; 83605; 83690; 85025; 96374; 99285; 99285-25; A9270-GY; C9113; J1170; J1885; J7030; J7121

== ENCOUNTER 2021-11-29 19:55 | Emergency (ER) | payer MEDICAID ==
[2021-11-29] MEDS ORDERED: Ondansetron 4 MG/2 ML SDV IVPUSH ONE (20:32)
[2021-11-29] MEDS ORDERED: HYDROmorphone 1 MG/ML Syringe IVPUSH ONE (20:32)
[2021-11-29] MEDS ORDERED: Sodium Chloride 0.9% 1,000 ML IV SCH (20:45)
[2021-11-29] MEDS ORDERED: Aluminum Hydroxide/Magnesium Hydroxide/Simethicone Susp 30 ML Cup PO STA (22:09)
[2021-11-29] MEDS ORDERED: Lactated Ringers 1,000 ML IV SCH (22:15)
[2021-11-29 22:20] LABS: CORONAVIRUS COVID-19 NAA NEGATIVE (NEGATIVE)
[2021-11-29] MEDS ORDERED: Sodium Chloride 0.9% 100 ML IV SCH (22:30)
[2021-11-29] MEDS ORDERED: Iopamidol 755 Mg/ML 100 ML Bottle IV SCH (22:30)
== END 2021-11-29 23:56 | disposition home or self-care (01) ==
LOC: JP.ED 19:55
DX: R10.84 Generalized abdominal pain (principal); E87.6 Hypokalemia; I25.2 Old myocardial infarction; Z88.5 Allergy status to narcotic agent; Z20.822 Contact with and (suspected) exposure to COVID-19
CPT/HCPCS: 0241U; 36415; 74174; 74176; 80053; 80307; 81001; 83605; 83690; 85025; 86140; 96374; 96375; 99282; 99284-25; A9270-GY; J1170; J2405; J7030; J7120; Q9967

== ENCOUNTER 2023-03-28 04:05 | Emergency (ER) | payer MEDICAID ==
[2023-03-28] MEDS ORDERED: Sodium Chloride 0.9% 10 ML Syringe FLUSH PRN (04:29)
[2023-03-28] MEDS ORDERED: Ketorolac 15 MG/ML SDV IVPUSH ONE (04:30)
[2023-03-28 04:48] LABS: BASOPHILS ABSOLUTE AUTO 0.05 K/uL (0.00-0.10); BASOPHILS PERCENT AUTO 0.4 % (0.1-1.3); EOSINOPHILS ABSOLUTE AUTO 0.24 K/uL (0.00-0.40); HEMATOCRIT 38.6 % (38.4-49.7); HEMOGLOBIN 13.9 g/dL (12.9-16.9); IMMATURE GRAN ABSOLUTE AUTO 0.04 K/uL (0.00-0.23); IMMATURE GRAN PERCENT AUTO 0.3 % (0.0-0.7); LYMPHOCYTES ABSOLUTE AUTO 1.65 K/uL (0.8-3.3); LYMPHOCYTES PERCENT AUTO 14.1 % (11.4-47.7); MEAN CORPUSCULAR HEMOGLOBIN 32.2 pg (31.6-35.5); MEAN CORPUSCULAR VOLUME 89.4 fL (81.4-99.0); MONOCYTES PERCENT AUTO 7.7 % (3.3-12.6); NEUTROPHILS ABSOLUTE AUTO 8.86 K/uL (1.0-7.6); NEUTROPHILS PERCENT AUTO 75.5 % (40.0-78.1); PLATELET COUNT,PLT 299 K/uL (130-375); RED BLOOD CELL COUNT 4.32 M/uL (4.14-5.76); WHITE BLOOD CELL COUNT,WBC 11.7 K/uL (3.2-11.0)
[2023-03-28 05:12] LABS: A/G RATIO 0.9 (1.2-2.2); ALANINE AMINOTRANSFERASE,ALT 25 U/L (12-78); ALBUMIN 3.2 g/dL (3.4-5.0); ALKALINE PHOSPHATASE 99 U/L (46-116); ASPARTATE AMNIOTRANSFERASE,AST 24 U/L (15-37); BILIRUBIN TOTAL 0.4 mg/dL (0.2-1.0); BLOOD UREA NITROGEN,BUN 14 mg/dL (7-18); C-REACTIVE PROTEIN 0.15 mg/dL (0.0-0.3); CARBON DIOXIDE,CO2 24 mmol/L (21-32); CHLORIDE,CL 103 mmol/L (100-108); CREATININE 1.3 mg/dL (0.8-1.3); EST CRCL DRUG DOSING (CG) 55.19 mL/min; ESTIMATED GFR 64 mL/min (>60); GLUCOSE RANDOM 97 mg/dL (74-106); POTASSIUM,K 4.2 mmol/L (3.6-5.2); PROTEIN TOTAL,TP 6.6 g/dL (6.4-8.2); SODIUM,NA 136 mmol/L (140-148)
[2023-03-28 05:16] LABS: ANION GAP 13.2 mmol/L (5.0-14.0)
[2023-03-28 05:25] LABS: AMPHETAMINES SCREEN, URINE PRESUMPTIVE POSITIVE (NEGATIVE); APPEARANCE,URINE CLEAR (CLEAR); BARBITURATE SCREEN,URINE NEGATIVE (NEGATIVE); BENZODIAZEPINES SCREEN,URINE NEGATIVE (NEGATIVE); BILIRUBIN,URINE NEGATIVE (NEGATIVE); COLOR,URINE YELLOW (YELLOW); GLUCOSE,URINE NEGATIVE (NEGATIVE); KETONES,URINE NEGATIVE (NEGATIVE); LEUKOCYTE ESTERASE,URINE NEGATIVE (NEGATIVE); METHADONE SCREEN, URINE NEGATIVE (NEGATIVE); METHAMPHETAMINES SCREEN, URINE PRESUMPTIVE POSITIVE (NEGATIVE); NITRITE,URINE NEGATIVE (NEGATIVE); OCCULT BLOOD,URINE NEGATIVE (NEGATIVE); OXYCODONE SCREEN,URINE NEGATIVE (NEGATIVE); PH,URINE 8.5 (5.0-8.0); PROPOXYPHENE SCREEN,URINE NEGATIVE (NEGATIVE); PROTEIN,URINE NEGATIVE (NEGATIVE); THC SCREEN,URINE 50 NG/ML PRESUMPTIVE POSITIVE (NEGATIVE)
[2023-03-28 05:37] LABS: AMORPHOUS SEDIMENT,URINE NOT SEEN; BACTERIA,URINE FEW; EPITHELIAL CELLS,URINE NOT SEEN; MUCUS,URINE NOT SEEN; RBC,URINE 0-5 (0-5); WBC,URINE 0-5 (0-5)
[2023-03-28] MEDS ORDERED: Gabapentin 300 MG Cap PO ONE (05:47)
== END 2023-03-28 06:29 | disposition home or self-care (01) ==
LOC: JP.ED 04:05
DX: M79.642 Pain in left hand (principal); M54.50 Low back pain, unspecified; F15.10 Other stimulant abuse, uncomplicated; I25.2 Old myocardial infarction; Z88.5 Allergy status to narcotic agent
CPT/HCPCS: 36415; 80053; 80305; 81001; 83605; 84484; 85025; 86140; 93005; 96374; 99285; A9270; J1885; J3490

== ENCOUNTER 2023-04-01 19:18 | Emergency (ER) | payer MEDICAID ==
[2023-04-01] MEDS ORDERED: Ampicillin/Sulbactam Na 3 GM in Sodium Chloride 0.9% 100 ML IV ONE (19:37)
[2023-04-01 19:51] LABS: BASOPHILS ABSOLUTE AUTO 0.06 K/uL (0.00-0.10); BASOPHILS PERCENT AUTO 0.5 % (0.1-1.3); EOSINOPHILS ABSOLUTE AUTO 0.15 K/uL (0.00-0.40); EOSINOPHILS PERCENT AUTO 1.2 % (0.0-5.4); HEMATOCRIT 40.9 % (38.4-49.7); HEMOGLOBIN 14.1 g/dL (12.9-16.9); IMMATURE GRAN ABSOLUTE AUTO 0.04 K/uL (0.00-0.23); IMMATURE GRAN PERCENT AUTO 0.3 % (0.0-0.7); LYMPHOCYTES ABSOLUTE AUTO 1.69 K/uL (0.8-3.3); LYMPHOCYTES PERCENT AUTO 13.2 % (11.4-47.7); MEAN CORPUSCULAR HEMOGLOBIN 32.2 pg (31.6-35.5); MEAN CORPUSCULAR HGB CONC 34.5 g/dL (31.6-35.5); MEAN CORPUSCULAR VOLUME 93.4 fL (81.4-99.0); MONOCYTES ABSOLUTE AUTO 1.06 K/uL (0.20-0.90); MONOCYTES PERCENT AUTO 8.3 % (3.3-12.6); NEUTROPHILS ABSOLUTE AUTO 9.81 K/uL (1.0-7.6); NEUTROPHILS PERCENT AUTO 76.5 % (40.0-78.1); PLATELET COUNT,PLT 336 K/uL (130-375); RED BLOOD CELL COUNT 4.38 M/uL (4.14-5.76); WHITE BLOOD CELL COUNT,WBC 12.8 K/uL (3.2-11.0)
[2023-04-01 20:12] LABS: A/G RATIO 0.7 (1.2-2.2); ALANINE AMINOTRANSFERASE,ALT 18 U/L (12-78); ALBUMIN 2.8 g/dL (3.4-5.0); ALKALINE PHOSPHATASE 95 U/L (46-116); ASPARTATE AMNIOTRANSFERASE,AST 11 U/L (15-37); BILIRUBIN TOTAL 0.3 mg/dL (0.2-1.0); BLOOD UREA NITROGEN,BUN 13 mg/dL (7-18); C-REACTIVE PROTEIN 3.52 mg/dL (0.0-0.3); CALCIUM 8.4 mg/dL (8.5-10.1); CARBON DIOXIDE,CO2 25 mmol/L (21-32); CHLORIDE,CL 100 mmol/L (100-108); CREATININE 1.2 mg/dL (0.8-1.3); EST CRCL DRUG DOSING (CG) 59.79 mL/min; ESTIMATED GFR 71 mL/min (>60); GLUCOSE RANDOM 186 mg/dL (74-106); POTASSIUM,K 3.5 mmol/L (3.6-5.2); PROTEIN TOTAL,TP 6.9 g/dL (6.4-8.2); SODIUM,NA 133 mmol/L (140-148)
[2023-04-01 20:13] LABS: ANION GAP 11.5 mmol/L (5.0-14.0)
[2023-04-01 20:17] LABS: LACTIC ACID 3.4 mmol/L (0.4-2.0)
[2023-04-01] MEDS ORDERED: Sodium Chloride 0.9% 1,000 ML IV ONE (20:25)
[2023-04-01 20:30] LABS: SEDIMENTATION RATE MANUAL 45 mm/hr (0-20)
== END 2023-04-02 00:05 ==
LOC: JP.ED 19:18
DX: M65.9 Synovitis and tenosynovitis, unspecified (principal); I10 Essential (primary) hypertension; I25.2 Old myocardial infarction; F17.210 Nicotine dependence, cigarettes, uncomplicated; Z88.5 Allergy status to narcotic agent
CPT/HCPCS: 36415; 73130; 80053; 83605; 85025; 85651; 86140; 87040; 96361; 96365; 99285; J0295; J3490; J7030

== ENCOUNTER 2024-06-27 14:51 | Emergency (ER) | payer MEDICAID ==
[2024-06-27 16:01] LABS: BASOPHILS ABSOLUTE AUTO 0.06 K/uL (0.00-0.10); EOSINOPHILS ABSOLUTE AUTO 0.29 K/uL (0.00-0.40); EOSINOPHILS PERCENT AUTO 4.7 % (0.0-5.4); HEMATOCRIT 38.4 % (38.4-49.7); HEMOGLOBIN 14.1 g/dL (12.9-16.9); LYMPHOCYTES PERCENT AUTO 25.7 % (11.4-47.7); MEAN CORPUSCULAR HEMOGLOBIN 32.7 pg (31.6-35.5); MEAN CORPUSCULAR HGB CONC 36.7 g/dL (31.6-35.5); MEAN CORPUSCULAR VOLUME 89.1 fL (81.4-99.0); MONOCYTES ABSOLUTE AUTO 0.61 K/uL (0.20-0.90); MONOCYTES PERCENT AUTO 9.8 % (3.3-12.6); NEUTROPHILS ABSOLUTE AUTO 3.66 K/uL (1.0-7.6); NEUTROPHILS PERCENT AUTO 58.8 % (40.0-78.1); PLATELET COUNT,PLT 307 K/uL (130-375); RED BLOOD CELL COUNT 4.31 M/uL (4.14-5.76); WHITE BLOOD CELL COUNT,WBC 6.2 K/uL (3.2-11.0)
[2024-06-27 16:21] LABS: ALANINE AMINOTRANSFERASE,ALT 24 U/L (12-78); ALBUMIN 3.3 g/dL (3.4-5.0); ALKALINE PHOSPHATASE 84 U/L (46-116); ANION GAP 9.3 mmol/L (5.0-14.0); ASPARTATE AMNIOTRANSFERASE,AST 20 U/L (15-37); BILIRUBIN TOTAL 0.2 mg/dL (0.2-1.0); BLOOD UREA NITROGEN,BUN 6 mg/dL (7-18); CALCIUM 8.9 mg/dL (8.5-10.1); CARBON DIOXIDE,CO2 27 mmol/L (21-32); CHLORIDE,CL 105 mmol/L (100-108); ESTIMATED GFR 88 mL/min (>60); GLUCOSE RANDOM 110 mg/dL (74-106); POTASSIUM,K 3.9 mmol/L (3.6-5.2); PROTEIN TOTAL,TP 6.7 g/dL (6.4-8.2); SODIUM,NA 141 mmol/L (140-148)
[2024-06-27] MEDS: Ketorolac 30 MG/ML SDV IVPUSH ONE (16:46)
[2024-06-27] MEDS: Sodium Chloride 0.9% 1,000 ML IV ONE (16:46)
[2024-06-27 16:57] LABS: APPEARANCE,URINE CLEAR (CLEAR); BILIRUBIN,URINE NEGATIVE (NEGATIVE); COLOR,URINE YELLOW (YELLOW); GLUCOSE,URINE NEGATIVE (NEGATIVE); KETONES,URINE NEGATIVE (NEGATIVE); LEUKOCYTE ESTERASE,URINE NEGATIVE (NEGATIVE); NITRITE,URINE NEGATIVE (NEGATIVE); OCCULT BLOOD,URINE NEGATIVE (NEGATIVE); PROTEIN,URINE NEGATIVE (NEGATIVE); UROBILINOGEN,URINE 0.2 EU/dL (0.2-1.0)
[2024-06-27 17:04] LABS: AMORPHOUS SEDIMENT,URINE NOT SEEN; BACTERIA,URINE NOT SEEN; EPITHELIAL CELLS,URINE NOT SEEN; MUCUS,URINE NOT SEEN; RBC,URINE 0-5 (0-5); WBC,URINE 0-5 (0-5)
== END 2024-06-27 17:36 | disposition home or self-care (01) ==
LOC: JP.ED 14:51
DX: R10.9 Unspecified abdominal pain (principal); Z90.49 Acquired absence of other specified parts of digestive tract; Z88.5 Allergy status to narcotic agent; I10 Essential (primary) hypertension
CPT/HCPCS: 36415; 74176; 80053; 81001; 83690; 85025; 93005; 96361; 96374; 99284; J1885; J7030